=== PATIENT | female | born 1985 | race Caucasian/White ===

== ENCOUNTER 2021-01-20 14:19 | Emergency (ER) | payer OTHER ==
--- NOTE | 2021-01-20 17:20 | EDPHYS ---
Physician Documentation [facility] Name: Kisha Velásquez Age: 35 yrs Sex: Female : 1985 Arrival Date: 01/20/2021 Time: 14:23 Bed 12 Private MD: ED Physician Holden Rodriguez HPI: 01/20 19:26 This 35 yrs old Female presents to ER via Ambulatory with complaints of Constipation. kdr 19:26 The patient presents to the emergency department with pain in the rectal area, that is kdr mild. Onset: The symptoms/episode began/occurred gradually, 4 day(s) ago. Context: the patient She has had a longstanding history of constipation. Modifying factors: The symptoms are alleviated by nothing, The symptoms are aggravated by nothing. Associate signs and symptoms: The patient has no apparent associated signs or symptoms. The patient has not experienced similar symptoms in the past. 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 - Social history:: Smoking status: Reported history of juuling and/or vaping. ROS: 19:26 Constitutional: Negative for fever, chills, and weight loss, Eyes: Negative for injury, kdr pain, redness, and discharge, Neck: Negative for injury, pain, and swelling, Cardiovascular: Negative for chest pain, palpitations, and edema, Respiratory: Negative for shortness of breath, cough, wheezing, and pleuritic chest pain, Back: Negative for injury and pain, : Negative for injury, bleeding, discharge, and swelling, MS/Extremity: Negative for injury and deformity, Skin: Negative for injury, rash, and discoloration, Neuro: Negative for headache, weakness, numbness, tingling, and seizure activity. Psych: Negative for depression, anxiety, suicide ideation, homicidal ideation, and hallucinations, Allergy/Immunology: Negative for hives, rash, and allergies, Endocrine: Negative for neck swelling, polydipsia, polyuria, polyphagia, and marked weight changes, Hematologic/Lymphatic: Negative for swollen nodes, abnormal bleeding, and unusual bruising. 19:26 Abdomen/GI: Positive for constipation, Negative for black/tarry stool, rectal pain, rectal bleeding, bowel incontinence. Exam: 19:26 Constitutional: This is a well developed, well nourished patient who is awake, alert, kdr and in no acute distress. Head/Face: Normocephalic, atraumatic. Eyes: Pupils equal round and reactive to light, extra-ocular motions intact. Lids and lashes normal. Conjunctiva and sclera are non-icteric and not injected. Cornea within normal limits. Periorbital areas with no swelling, redness, or edema. Neck: Trachea midline, no thyromegaly or masses palpated, and no cervical lymphadenopathy. Supple, full range of motion without nuchal rigidity, or vertebral point tenderness. No Meningismus. Chest/axilla: Normal chest wall appearance and motion. Nontender with no deformity. No lesions are appreciated. Cardiovascular: Regular rate and rhythm with a normal S1 and S2. No gallops, murmurs, or rubs. Normal PMI, no JVD. No pulse deficits. Respiratory: Lungs have equal breath sounds bilaterally, clear to auscultation and percussion. No rales, rhonchi or wheezes noted. No increased work of breathing, no retractions or nasal flaring. Back: No spinal tenderness. No costovertebral tenderness. Full range of motion. Skin: Warm, dry with normal turgor. Normal color with no rashes, no lesions, and no evidence of cellulitis. MS/ Extremity: Pulses equal, no cyanosis. Neurovascular intact. Full, normal range of motion. Neuro: Awake and alert, GCS 15, oriented to person, place, time, and situation. Cranial nerves II-XII grossly intact. Motor strength 5/5 in all extremities. Sensory grossly intact. Cerebellar exam normal. Normal gait. Psych: Awake, alert, with orientation to person, place and time. Behavior, mood, and affect are within normal limits. 19:26 Abdomen/GI: Inspection: abdomen appears normal, Bowel sounds: normal, Palpation: soft, mild abdominal tenderness, in all quadrants, Rectal exam: rectal tone normal, Stool: normal, brown, fecal impaction, that is mild, that is moderate, the exam is chaperoned by the nurse, Patient had a bowel movement status post disimpaction. She felt much better and was discharged home. Vital Signs: 14:26 BP 128 / 94; Pulse 78; Resp 18 S; Temp 98.0(TE); Pulse Ox 99% on R/A; Weight 77.11 kg aa5 (R); Height 5 ft. 5 in. (165.10 cm) (R); 14:51 BP 125 / 93; Pulse 73; Resp 18; Pulse Ox 99% ; Pain 7/10; ld1 16:55 BP 127 / 90; Pulse 76; Resp 18; Pulse Ox 100% ; dh4 14:26 Body Mass Index 28.29 (77.11 kg, 165.10 cm) aa5 MDM: 17:20 Patient medically screened. kdr 19:26 Data reviewed: vital signs, nurses notes, lab test result(s), radiologic studies. kdr Counseling: I had a detailed discussion with the patient and/or guardian regarding: the historical points, exam findings, and any diagnostic results supporting the discharge/admit diagnosis, lab results, the need for outpatient follow up. Administered Medications: No medications were administered Disposition Summary: 01/20/21 17:20 Discharge Ordered Location: Home kdr Problem: new kdr Symptoms: have improved kdr Condition: Stable kdr Diagnosis - Constipation kdr Followup: kdr - With: Private Physician - When: 2 - 3 days - Reason: If symptoms return, Further diagnostic work-up, Recheck today's complaints, Continuance of care, Re-evaluation by your physician Discharge Instructions: - Discharge Summary Sheet kdr - Constipation, Adult, [id number] kdr Forms: - Medication Reconciliation Form kdr - Thank You Letter kdr Prescriptions: - Miralax 17 gram Oral powder in packet - take 1 packet by ORAL route once daily; 1 box; Refills: 0, Product Selection kdr Permitted Signatures: Holden Rodriguez MD MD kdr Penelope Cosby, RN RN aa5
--- NOTE | 2021-01-20 17:20 | ER ---
Nurse's Notes [facility] Name: Kisha Velásquez Age: 35 yrs Sex: Female : 1985 Arrival Date: 01/20/2021 Time: : Bed 12 Private MD: Diagnosis: Constipation Presentation: 01/20 14:26 Chief complaint: Patient states: constipation. Pt reports last normal BM was 4 or 5 aa5 days ago. Pt states "yesterday I started with stomach pain and I took a laxative and a suppository but didn't have much stool today". Coronavirus screen: At this time, the client does not indicate any symptoms associated with coronavirus-19. Ebola Screen: No symptoms or risks identified at this time. Initial Sepsis Screen: Does the patient meet any 2 criteria? No. Patient's initial sepsis screen is negative. Does the patient have a suspected source of infection? No. Patient's initial sepsis screen is negative. Risk Assessment: Do you want to hurt yourself or someone else? Patient reports no desire to harm self or others. Onset of symptoms was December 2020. 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 - Social history:: Smoking status: Reported history of juuling and/or vaping. Screenin:51 Abuse screen: Denies threats or abuse. Nutritional screening: No deficits noted. ld1 Tuberculosis screening: No symptoms or risk factors identified. Fall Risk None identified. Assessment: 14:51 General: Appears in no apparent distress. uncomfortable, Behavior is calm, cooperative, ld1 appropriate for age. Pain: Complains of pain in buttocks Pain currently is 7 out of 10 on a pain scale. Quality of pain is described as pressure. Neuro: Level of Consciousness is awake, alert, obeys commands, Oriented to person, place, time, situation. Cardiovascular: Capillary refill < 3 seconds Patient's skin is warm and dry. Respiratory: Airway is patent Respiratory effort is even, unlabored, Respiratory pattern is regular, symmetrical. GI:. GI: Abdomen is round non-distended, Bowel sounds present X 4 quads. Abd is soft and non tender X 4 quads. Reports constipation. : No signs and/or symptoms were reported regarding the genitourinary system. EENT: No signs and/or symptoms were reported regarding the EENT system. Derm: No signs and/or symptoms reported regarding the dermatologic system. Musculoskeletal: No signs and/or symptoms reported regarding the musculoskeletal system. 14:54 Reassessment: Patient appears in no apparent distress at this time. Patient and/or iw family updated on plan of care and expected duration. Pain level reassessed. Patient is alert, oriented x 3, equal unlabored respirations, skin warm/dry/pink. pt given prune/apple/butter juice mix to drink. 17:07 Reassessment: Assisting ERP at bedside performing rectal exam. ld1 Vital Signs: 14:26 BP 128 / 94; Pulse 78; Resp 18 S; Temp 98.0(TE); Pulse Ox 99% on R/A; Weight 77.11 kg aa5 (R); Height 5 ft. 5 in. (165.10 cm) (R); 14:51 BP 125 / 93; Pulse 73; Resp 18; Pulse Ox 99% ; Pain 7/10; ld1 16:55 BP 127 / 90; Pulse 76; Resp 18; Pulse Ox 100% ; dh4 14:26 Body Mass Index 28.29 (77.11 kg, 165.10 cm) aa5 ED Course: 14:23 Patient arrived in ED. kc5 14:26 Arm band placed on. aa5 14:28 Triage completed. aa5 14:29 Massiel Wang, JANAE is Primary Nurse. ld1 14:35 Holden Rodriguez MD is Attending Physician. kdr 14:51 Patient has correct armband on for positive identification. Bed in low position. Call ld1 light in reach. Side rails up X 1. Pulse ox on. NIBP on. Door closed. Noise minimized. 17:30 No provider procedures requiring assistance completed. Patient did not have IV access iw during this emergency room visit. Administered Medications: No medications were administered Outcome: 17:20 Discharge ordered by . kdr 17:30 Discharged to home ambulatory. iw 17:30 Condition: good 17:30 Discharge instructions given to patient, Instructed on discharge instructions, follow up and referral plans. medication usage, Demonstrated understanding of instructions, follow-up care, medications, Prescriptions given X 1. 17:31 Patient left the ED. iw Signatures: Holden Rodriguez MD MD kdr Williams, Irene RN RN Penelope Cosby RN RN aa5 Wilson Donald 4 Massiel Wang RN RN ld1 Lorenza Morgan kc5
[2021-01-20 17:38] VITALS: TEMP 98
[2021-01-20 17:48] VITALS: BP 127/90; O2SAT 100
== END 2021-01-20 17:31 | disposition home or self-care (01) ==
LOC: ER 14:19
DX: K59.00 Constipation, unspecified (principal)
CPT/HCPCS: 99283